=== PATIENT | female | born 1990 | race Two or more races ===

== ENCOUNTER 2019-11-09 16:57 | Emergency (ER) | payer MEDICAID ==
[~2019-11-09] VITALS: Ht 152.4 cm; Wt 84.0 kg
[2019-11-09 17:57] VITALS: BP 130/86
== END 2019-11-09 17:57 | disposition home or self-care (01) ==
LOC: ER 16:57
DX: O26.893 Other specified pregnancy related conditions, third trimester (principal); S63.591A Other specified sprain of right wrist, initial encounter; O24.419 Gestational diabetes mellitus in pregnancy, unspecified control; Z87.81 Personal history of (healed) traumatic fracture; Z3A.35 35 weeks gestation of pregnancy; X58.XXXA Exposure to other specified factors, initial encounter; Y93.89 Activity, other specified; Y92.018 Other place in single-family (private) house as the place of occurrence of the external cause
CPT/HCPCS: 29125; 99283

== ENCOUNTER 2019-12-07 12:03 | Inpatient (IN) | payer MEDICAID ==
[~2019-12-07] VITALS: Ht 165.1 cm; Wt 90.7 kg
[2019-12-07] MEDS ORDERED: PNV1TABL76 PO (13:14)
[2019-12-07] MEDS ORDERED: CARBOPROST TROMETHAMINE 250 MCG/ML AMPUL IM PRN (16:15)
[2019-12-07] MEDS ORDERED: LIDOCAINE HCL 1% 20ML VIAL (Pyxis) INJ INFIL SCH (16:15)
[2019-12-07] MEDS ORDERED: MISOPROSTOL 100MCG TABLET VG SCH (16:15)
[2019-12-07] MEDS ORDERED: BUTORPHANOL TARTRATE 2 MG/ML VIAL IV PRN (16:15)
[2019-12-07] MEDS ORDERED: NALOXONE HCL 0.4 MG/ML 1ML VIAL IM PRN (16:15)
[2019-12-07] MEDS ORDERED: METHYLERGONOVINE MALEATE 0.2 MG/ML IM PRN (16:15)
[2019-12-07] MEDS: LACTATED RINGERS 1,000 ML IV SCH (16:53)
[2019-12-07] MEDS: MISOPROSTOL 100MCG TABLET VG PRN ×2 (17:09→22:12)
[2019-12-07 17:33] LABS: BASOPHILS % 0.4 % (0.0-2.0); EOSINOPHILS % 0.7 % (0.0-5.0); HEMATOCRIT. 37.4 % (36.0-48.0); HEMOGLOBIN. 12.8 g/dL (12.0-16.0); MEAN CORPUSCULAR HEMOGLOBIN 32.6 pg (28.0-32.0); MEAN CORPUSCULAR VOLUME 95.5 fL (81.0-99.0); MEAN PLATELET VOLUME 10.7 fl (7.4-10.4); MONOCYTES % 4.8 % (2.0-8.0); NEUTROPHILS % 69.1 % (40.0-76.0); PLATELET 177 x1000/uL (130-400); RED BLOOD CELL COUNT 3.92 mill/uL (4.2-5.4)
[2019-12-07 17:38] LABS: INR 0.9; PARTIAL THROMBOPLASTIN TIME 26.6 sec (23.4-31.0); PROTHROMBIN TIME 9.8 sec (9.6-11.0)
[2019-12-07 17:39] LABS: CLARITY URINE CLOUDY (CLEAR); COLOR URINE YELLOW (YELLOW); KETONES URINE NEGATIVE (NEGATIVE); LEUKOCYTE ESTERASE URINE 2+ (NEGATIVE); NITRITE URINE NEGATIVE (NEGATIVE); OCCULT BLOOD URINE NEGATIVE (NEGATIVE); PROTEIN URINE NEGATIVE (NEGATIVE); SPECIFIC GRAVITY URINE 1.005 (1.005-1.030); UROBILINOGEN URINE 0.2 E.U./dL (0.2-1.0)
[2019-12-07 18:14] LABS: HEPATITIS B SURFACE ANTIGEN NEGATIVE
[2019-12-07 18:37] LABS: *BENZODIAZEPINES SCREEN URINE NEGATIVE (NEGATIVE)
[2019-12-07 18:38] LABS: *AMPHETAMINES SCREEN URINE NEGATIVE (NEGATIVE); *BARBITURATES SCREEN URINE NEGATIVE (NEGATIVE); *COCAINE SCREEN URINE NEGATIVE (NEGATIVE); CANNABINOID URINE SCREEN NEGATIVE (NEGATIVE); METHADONE URINE SCREEN NEGATIVE (NEGATIVE); OPIATES URINE SCREEN NEGATIVE (NEGATIVE); PHENCYCLIDINE URINE SCREEN NEGATIVE (NEGATIVE)
[2019-12-07] MEDS: PENICILLIN G POTASSIUM 5 MMU in DEXT 5% WATER 100 ML IV SCH (22:45)
[2019-12-08] MEDS: MISOPROSTOL 100MCG TABLET VG PRN (02:02)
[2019-12-08] MEDS: PENICILLIN G POTASSIUM 2.5 MMU in DEXTROSE 5% WATER 50 ML IV SCH ×2 (02:03→06:08)
[2019-12-08] MEDS: LACTATED RINGERS 1,000 ML IV SCH (03:48)
[2019-12-08] MEDS ORDERED: FENTANYL CITRATE/PF 50MCG/ML 2ML VIAL ONE (04:41)
[2019-12-08] MEDS ORDERED: BUPIVACAINE HCL/PF 0.25% (2.5MG/ML) 10ML ONE (04:41)
[2019-12-08] MEDS ORDERED: ROPIVACAINE HCL 2MG/ML (0.2%) 200ML BOTTLE IR ONE (04:45)
[2019-12-08] MEDS ORDERED: ROPIVACAINE HCL/PF EPIDURAL 200 ML EPI PRN (05:00)
[2019-12-08] MEDS: DEXT 5%/LR + PITOCIN 20UNITS/L 1,000 ML IV SCH ×2 (06:09→10:27)
[2019-12-08] MEDS ORDERED: DEXT 5%/LR + PITOCIN 20UNITS/L 1,000 ML IV SCH (09:27)
[2019-12-08] MEDS ORDERED: LANOLIN OINT 7GM TUBE TOP PRN (09:30)
[2019-12-08] MEDS ORDERED: GLYCERIN/WITCH HAZEL LEAF MEDICATED PAD TOP PRN (09:30)
[2019-12-08] MEDS ORDERED: HEMORRHOIDAL SUPP PR PRN (09:30)
[2019-12-08] MEDS ORDERED: DIPHENHYDRAMINE 25MG CAPSULE PO PRN (09:30)
[2019-12-08] MEDS ORDERED: ACETAMINOPHEN WITH CODEINE 300/30MG TABLET PO PRN (09:30)
[2019-12-08] MEDS ORDERED: BENZOCAINE/LANOLIN/ALOE VERA SPRAY TOP PRN (09:30)
[2019-12-08] MEDS ORDERED: BISACODYL 10MG SUPP PR PRN (09:30)
[2019-12-08 11:30] VITALS: BP 129/87
[2019-12-08 12:00] VITALS: BP 132/82
[2019-12-08] MEDS: ACETAMINOPHEN WITH CODEINE 300/30MG TABLET PO PRN (13:11)
[2019-12-08 15:45] VITALS: BP 131/71
[2019-12-08] MEDS: IBUPROFEN 400MG TABLET PO PRN (19:36)
[2019-12-08 19:55] VITALS: BP 129/82
[2019-12-08] MEDS: MAGNESIUM/ALUMINUM HYDROXIDE/SIMETHICONE 30ML UDC PO SCH (21:00)
[2019-12-08] MEDS: DOCUSATE SODIUM 100MG CAPSULE PO SCH (21:00)
[2019-12-08] MEDS: SIMETHICONE 80MG TABLET CHEW PO SCH (21:01)
[2019-12-09] MEDS: ACETAMINOPHEN WITH CODEINE 300/30MG TABLET PO PRN ×2 (05:17→15:08)
[2019-12-09 05:23] VITALS: BP 130/84
[2019-12-09 07:22] LABS: BASOPHILS % 0.4 % (0.0-2.0); EOSINOPHILS % 0.8 % (0.0-5.0); HEMATOCRIT. 34.4 % (36.0-48.0); HEMOGLOBIN. 12.1 g/dL (12.0-16.0); LYMPHOCYTES % 23.1 % (20.0-50.0); MEAN CORPUSCULAR HEMOGLOBIN 33.4 pg (28.0-32.0); MEAN PLATELET VOLUME 10.3 fl (7.4-10.4); MONOCYTES % 5.5 % (2.0-8.0); NEUTROPHILS % 70.2 % (40.0-76.0); PLATELET 130 x1000/uL (130-400); RED BLOOD CELL COUNT 3.62 mill/uL (4.2-5.4); RED CELL DISTRIBUTION WIDTH 13.5 % (11.6-14.6)
[2019-12-09 07:30] VITALS: BP 123/83
[2019-12-09] MEDS: FERROUS SULFATE 325MG TABLET PO SCH (15:07)
[2019-12-09] MEDS: PRENATAL VIT/FE FUMARATE/FA TABLET PO SCH (15:07)
[2019-12-09 16:21] VITALS: BP 123/77
[2019-12-09 20:00] VITALS: BP 129/82
[2019-12-09] MEDS: DOCUSATE SODIUM 100MG CAPSULE PO SCH (21:04)
[2019-12-09] MEDS: MAGNESIUM/ALUMINUM HYDROXIDE/SIMETHICONE 30ML UDC PO SCH (21:04)
[2019-12-09] MEDS: SIMETHICONE 80MG TABLET CHEW PO SCH (21:04)
[2019-12-10] MEDS: IBUPROFEN 400MG TABLET PO PRN (01:33)
[2019-12-10 04:00] VITALS: BP 136/82
[2019-12-10 08:00] VITALS: BP 128/79
[2019-12-10] MEDS: PRENATAL VIT/FE FUMARATE/FA TABLET PO SCH (09:25)
[2019-12-10] MEDS: FERROUS SULFATE 325MG TABLET PO SCH (09:26)
[2019-12-10] MEDS: MAGNESIUM/ALUMINUM HYDROXIDE/SIMETHICONE 30ML UDC PO SCH (09:26)
== END 2019-12-10 12:00 | disposition home or self-care (01) | DRG 560 ==
LOC: OBSVTOIN 12:03 → 8 EST LDRP 12:03 → 8EST 12-08 11:15
PROVIDERS: ADMIT Obstetrics & Gynecology; ATTEND Obstetrics & Gynecology
PROC: 10D07Z6 Extraction of Products of Conception, Vacuum, Via Natural or Artificial Opening (ICD-10-PCS; principal; 2019-12-08)
PROC: 3E0R3BZ Introduction of Anesthetic Agent into Spinal Canal, Percutaneous Approach (ICD-10-PCS; 2019-12-08)
PROC: 00HU33Z Insertion of Infusion Device into Spinal Canal, Percutaneous Approach (ICD-10-PCS; 2019-12-08)
DX: O24.92 Unspecified diabetes mellitus in childbirth (principal); O69.81X0 Labor and delivery complicated by cord around neck, without compression, not applicable or unspecified; Z37.0 Single live birth
CPT/HCPCS: 36415; 76805; 80305; 81003; 82962; 85025; 86592; 86703; 86762; 86850; 86900; 87340; 99281; J2540; J2590; J2795; J3010; J3490; J7060; J7120

== ENCOUNTER 2020-02-18 14:02 | Emergency (ER) | payer MEDICAID ==
[~2020-02-18] VITALS: Ht 167.6 cm; Wt 78.0 kg
[2020-02-18 15:22] LABS: BASOPHILS % 0.4 % (0.0-2.0); EOSINOPHILS % 1.9 % (0.0-5.0); HEMATOCRIT. 39.9 % (36.0-48.0); HEMOGLOBIN. 13.9 g/dL (12.0-16.0); LYMPHOCYTES % 37.7 % (20.0-50.0); MEAN CORPUSCULAR HEMOGLOBIN 32.2 pg (28.0-32.0); MEAN CORPUSCULAR VOLUME 92.2 fL (81.0-99.0); MEAN PLATELET VOLUME 9.2 fl (7.4-10.4); MONOCYTES % 8.2 % (2.0-8.0); NEUTROPHILS % 51.8 % (40.0-76.0); PLATELET 289 x1000/uL (130-400); RED BLOOD CELL COUNT 4.33 mill/uL (4.2-5.4); RED CELL DISTRIBUTION WIDTH 13.1 % (11.6-14.6)
[2020-02-18 15:23] LABS: CHLORIDE 108 mEq/L (98-107)
[2020-02-18 15:24] LABS: CLARITY URINE CLOUDY (CLEAR); COLOR URINE YELLOW (YELLOW); KETONES URINE NEGATIVE (NEGATIVE); LEUKOCYTE ESTERASE URINE 2+ (NEGATIVE); NITRITE URINE NEGATIVE (NEGATIVE); OCCULT BLOOD URINE NEGATIVE (NEGATIVE); PROTEIN URINE NEGATIVE (NEGATIVE); SPECIFIC GRAVITY URINE 1.022 (1.005-1.030); UROBILINOGEN URINE 0.2 E.U./dL (0.2-1.0)
[2020-02-18 15:28] LABS: HCG SCREEN NEGATIVE
[2020-02-18 16:15] VITALS: BP 127/77
== END 2020-02-18 16:19 | disposition home or self-care (01) ==
LOC: ER 14:02
DX: N12 Tubulo-interstitial nephritis, not specified as acute or chronic (principal); N30.90 Cystitis, unspecified without hematuria; Z86.32 Personal history of gestational diabetes
CPT/HCPCS: 36415; 80053; 81003; 81025; 84703; 85025; 93005; 99284

== ENCOUNTER 2021-08-15 07:07 | Emergency (ER) | payer MEDICAID ==
[~2021-08-15] VITALS: Ht 154.9 cm; Wt 82.0 kg
[2021-08-15 08:59] LABS: BASOPHILS % 0.4 % (0.0-2.0); EOSINOPHILS % 2.2 % (0.0-5.0); HEMATOCRIT. 38.9 % (36.0-48.0); HEMOGLOBIN. 13.4 g/dL (12.0-16.0); LYMPHOCYTES % 26.8 % (20.0-50.0); MEAN CORPUSCULAR HEMOGLOBIN 31.6 pg (28.0-32.0); MEAN CORPUSCULAR VOLUME 91.5 fL (81.0-99.0); MEAN PLATELET VOLUME 9.1 fl (7.4-10.4); MONOCYTES % 5.2 % (2.0-8.0); NEUTROPHILS % 65.4 % (40.0-76.0); PLATELET 276 x1000/uL (130-400); RED BLOOD CELL COUNT 4.26 mill/uL (4.2-5.4); RED CELL DISTRIBUTION WIDTH 13.7 % (11.6-14.6)
[2021-08-15 09:08] LABS: CHLORIDE 111 mEq/L (98-107)
[2021-08-15 09:10] LABS: CLARITY URINE CLEAR (CLEAR); COLOR URINE YELLOW (YELLOW); KETONES URINE NEGATIVE (NEGATIVE); LEUKOCYTE ESTERASE URINE 1+ (NEGATIVE); NITRITE URINE NEGATIVE (NEGATIVE); OCCULT BLOOD URINE 3+ (NEGATIVE); PROTEIN URINE NEGATIVE (NEGATIVE); SPECIFIC GRAVITY URINE 1.022 (1.005-1.030); UROBILINOGEN URINE 0.2 E.U./dL (0.2-1.0)
[2021-08-15 09:17] LABS: B-HCG QUANTITATIVE 686 mIU/mL (<3)
[2021-08-15 10:25] VITALS: BP 125/64
== END 2021-08-15 10:19 | disposition home or self-care (01) ==
LOC: ER 07:07
DX: O46.91 Antepartum hemorrhage, unspecified, first trimester (principal); O03.9 Complete or unspecified spontaneous abortion without complication; Z3A.01 Less than 8 weeks gestation of pregnancy
CPT/HCPCS: 36415; 76801; 80053; 81003; 81025; 84702; 85025; 86850; 86900; 99284

== ENCOUNTER 2021-08-17 18:43 | Emergency (ER) | payer MEDICAID ==
[~2021-08-17] VITALS: Ht 154.9 cm; Wt 82.0 kg
[2021-08-17 20:22] LABS: BASOPHILS % 0.4 % (0.0-2.0); EOSINOPHILS % 1.7 % (0.0-5.0); HEMATOCRIT. 37.9 % (36.0-48.0); HEMOGLOBIN. 13.1 g/dL (12.0-16.0); MEAN CORPUSCULAR HEMOGLOBIN 31.6 pg (28.0-32.0); MEAN CORPUSCULAR VOLUME 91.4 fL (81.0-99.0); MEAN PLATELET VOLUME 8.7 fl (7.4-10.4); MONOCYTES % 4.9 % (2.0-8.0); PLATELET 281 x1000/uL (130-400); RED BLOOD CELL COUNT 4.15 mill/uL (4.2-5.4); RED CELL DISTRIBUTION WIDTH 13.4 % (11.6-14.6)
[2021-08-17 20:29] LABS: CHLORIDE 109 mEq/L (98-107)
[2021-08-17 20:52] LABS: B-HCG QUANTITATIVE 945 mIU/mL (<3)
[2021-08-17 23:30] VITALS: BP 124/72
== END 2021-08-17 23:40 | disposition home or self-care (01) ==
LOC: ER 18:43
DX: O20.0 Threatened abortion (principal); N93.9 Abnormal uterine and vaginal bleeding, unspecified; Z3A.00 Weeks of gestation of pregnancy not specified
CPT/HCPCS: 36415; 76801; 80048; 84702; 85025; 99284

== ENCOUNTER 2021-08-19 12:21 | Emergency (ER) | payer MEDICAID ==
[~2021-08-19] VITALS: Ht 154.9 cm; Wt 73.0 kg
[2021-08-19 12:25] VITALS: BP 139/74
[2021-08-19] MEDS ORDERED: ACETAMINOPHEN 325MG TABLET PO STA (12:39)
[2021-08-19] MEDS ORDERED: CEFTRIAXONE SODIUM 500 MG/VIAL IM ONE (12:45)
[2021-08-19] MEDS ORDERED: AZITHROMYCIN 500 MG TABLET PO ONE (12:45)
[2021-08-19] MEDS ORDERED: SODIUM CHLORIDE 0.9% 1,000 ML IV ONE (12:45)
[2021-08-19] MEDS ORDERED: LIDOCAINE HCL 1% 20ML VIAL (Pyxis) INJ INFIL ONE (12:45)
[2021-08-19 13:18] LABS: BASOPHILS % 0.4 % (0.0-2.0); EOSINOPHILS % 1.8 % (0.0-5.0); HEMATOCRIT. 37.6 % (36.0-48.0); HEMOGLOBIN. 13.1 g/dL (12.0-16.0); LYMPHOCYTES % 28.7 % (20.0-50.0); MEAN CORPUSCULAR HEMOGLOBIN 31.4 pg (28.0-32.0); MEAN CORPUSCULAR VOLUME 90.3 fL (81.0-99.0); NEUTROPHILS % 63.1 % (40.0-76.0); PLATELET 273 x1000/uL (130-400); RED BLOOD CELL COUNT 4.16 mill/uL (4.2-5.4); RED CELL DISTRIBUTION WIDTH 13.5 % (11.6-14.6)
[2021-08-19 13:29] LABS: CHLORIDE 108 mEq/L (98-107)
[2021-08-19 13:51] LABS: B-HCG QUANTITATIVE 1164 mIU/mL (<3)
[2021-08-19 15:13] LABS: CLARITY URINE CLOUDY (CLEAR); COLOR URINE YELLOW (YELLOW); KETONES URINE TRACE (NEGATIVE); LEUKOCYTE ESTERASE URINE 1+ (NEGATIVE); NITRITE URINE NEGATIVE (NEGATIVE); OCCULT BLOOD URINE 3+ (NEGATIVE); PH URINE 5.5 (4.5-8.0); PROTEIN URINE TRACE (NEGATIVE); SPECIFIC GRAVITY URINE 1.026 (1.005-1.030); UROBILINOGEN URINE 0.2 E.U./dL (0.2-1.0)
[2021-08-19] MEDS ORDERED: METR500T MT ×2 (15:38→15:39)
[2021-08-19] MEDS ORDERED: CEPH500C2 MT ×2 (15:38→15:39)
[2021-08-22 17:06] LABS: NEISSERIA GONORRHOEAE NAA Negative (Negative)
== END 2021-08-19 16:33 | disposition home or self-care (01) ==
LOC: ER 12:21
DX: O20.0 Threatened abortion (principal); N39.0 Urinary tract infection, site not specified; Z3A.00 Weeks of gestation of pregnancy not specified
CPT/HCPCS: 36415; 76801; 76817; 80053; 81003; 84702; 85025; 86850; 86900; 86901; 87491; 87591; 96360; 96361; 96372; 99284; J0696; J3490; J7030